=== PATIENT | female | born 1990 | race Caucasian/White ===

== ENCOUNTER 2021-05-20 21:45 | Emergency (ER) | payer OTHER ==
[2021-05-20 22:56] LABS: HEMOGLOBIN 14.5 gm/dl (12.3-15.3); RED BLOOD COUNT 4.41 M/UL (4.00-5.10); WHITE BLOOD COUNT 13.3 K/UL (4.5-11.0)
[2021-05-20 23:13] LABS: BUN/CREATININE RATIO 27 (0-10)
[2021-05-21] MEDS ORDERED: DELSYM30 MG/5 ML PO (03:28)
[2021-05-21] MEDS ORDERED: MEDROL DOSEPAK 24 MG PO (03:28)
== END 2021-05-21 03:58 | disposition home or self-care (01) ==
LOC: ER1 21:45
PROVIDERS: Physician Assistant Medical
DX: J45.901 Unspecified asthma with (acute) exacerbation (principal); J06.9 Acute upper respiratory infection, unspecified; Z90.89 Acquired absence of other organs; Z88.8 Allergy status to other drugs, medicaments and biological substances
CPT/HCPCS: 36600; 71045; 80053; 82803; 85025; 85379; 94640; 94664; 96374; 99285; J2930